=== PATIENT | female | born 1955 | race Hispanic/Latino ===

== ENCOUNTER 2023-12-28 17:47 | Inpatient (IN) | payer SELFPAY ==
[~2023-12-28] VITALS: Ht 152.4 cm; Wt 63.5 kg
[2023-12-28 18:41] LABS: APPEARANCE,URINE CLOUDY (CLEAR); BILIRUBIN,URINE NEGATIVE (NEGATIVE); COLOR,URINE YELLOW (YELLOW); GLUCOSE, URINE (UA) NEGATIVE (NEGATIVE); KETONES,URINE NEGATIVE (NEGATIVE); LEUKOCYTE ESTERASE ,URINE 500 Leu/uL (NEGATIVE); NITRATE,URINE 2+ (NEGATIVE); OCCULT BLOOD,URINE NEGATIVE (NEGATIVE); PROTEIN,URINE 30 mg/dL (NEGATIVE); UROBILINOGEN,URINE 0.2 mg/dL (0.2-1.0)
[2023-12-28] MEDS: Solu-medROL 125MG VIAL IVP ONE (18:42)
[2023-12-28] MEDS: CYCLOBENZAPRINE HCL 10 MG TABLET PO ONE (18:42)
[2023-12-28] MEDS: ketOROlac 15MG/ML VIAL (15MG/ML) IV ONE (18:42)
[2023-12-28 18:43] LABS: ADD UA MICROSCOPIC YES
[2023-12-28 18:47] LABS: BACTERIA,URINE FEW /HPF (None Seen); MUCUS,URINE RARE LPF (None Seen); SQUAMOUS EPITHELIAL CELL,UR FEW /HPF (0-2); WBC CLUMP FEW /HPF (0-1); WBC,URINE 26-50 /HPF (0-1)
[2023-12-28 19:29] LABS: BASOPHILS # (AUTO) 0.02 K/uL (0.00-0.20); BASOPHILS % (AUTO) 0.2 % (0.0-5.0); EOSINOPHILS # (AUTO) 0.19 K/uL (0.00-0.70); EOSINOPHILS % (AUTO) 2.1 % (0.0-8.0); HEMATOCRIT 31.3 % (36-48); IMMATURE GRANULOCYTE ABSOLUTE 0.04 K/uL (0-1); LYMPHOCYTES % (AUTO) 33.5 % (21.0-51.0); MEAN CORPUSCULAR HEMOGLOBIN 30.2 pg (27.0-33.0); MEAN CORPUSCULAR HGB CONC 33.2 g/dL (32.0-36.0); MONOCYTES # (AUTO) 0.4 K/uL (0.1-1.0); MONOCYTES % (AUTO) 4.4 % (3.0-13.0); NEUTROPHILS # (AUTO) 5.3 K/uL (1.8-7.7); NEUTROPHILS % (AUTO) 59.4 % (40.0-77.0); PLATELET COUNT (AUTO) 456 K/uL (130-400); RED BLOOD CELL COUNT(AUTO) 3.44 MIL/uL (4.00-5.50); RED CELL DISTRIBUTION WIDTH 12.9 % (11.0-15.5)
[2023-12-28 19:35] LABS: POTASSIUM 4.3 mmol/L (3.5-5.1)
[2023-12-28] MEDS: 0.9%NACL 1000ML 1,000 ML IV ONE (20:13)
[2023-12-28] MEDS: cefTRIAXone 1G VIAL IVPB ONE (20:13)
[2023-12-28] MEDS: 0.9%NACL 1000ML 1,000 ML IV SCH (23:30)
[2023-12-28] MEDS: HEParin 5,000 UNIT VIAL SQ SCH (23:39)
[2023-12-28] MEDS: morPHINE 2 MG SYG IVP ONE (23:40)
[2023-12-29] VITALS (9 sets, daily range): BP systolic 115–153; BP diastolic 43–88; PULSE 67–78; RESP 18–19; TEMP 98.2–98.9; O2SAT 97–98
[2023-12-29] MEDS ORDERED: OLME40TA18 PO (01:56)
[2023-12-29] MEDS ORDERED: GABA-529 PO (01:58)
[2023-12-29 05:16] LABS: BASOPHILS # (AUTO) 0.02 K/uL (0.00-0.20); BASOPHILS % (AUTO) 0.2 % (0.0-5.0); EOSINOPHILS # (AUTO) 0.01 K/uL (0.00-0.70); EOSINOPHILS % (AUTO) 0.1 % (0.0-8.0); HEMATOCRIT 34.5 % (36-48); IMMATURE GRANULOCYTE ABSOLUTE 0.09 K/uL (0-1); LYMPHOCYTES # (AUTO) 1.4 K/uL (1.0-4.8); LYMPHOCYTES % (AUTO) 17.9 % (21.0-51.0); MEAN CORPUSCULAR HEMOGLOBIN 30.3 pg (27.0-33.0); MEAN CORPUSCULAR HGB CONC 31.3 g/dL (32.0-36.0); MEAN CORPUSCULAR VOLUME 96.6 fL (79-99); MONOCYTES # (AUTO) 0.1 K/uL (0.1-1.0); MONOCYTES % (AUTO) 1.6 % (3.0-13.0); NEUTROPHILS # (AUTO) 6.4 K/uL (1.8-7.7); NEUTROPHILS % (AUTO) 79.1 % (40.0-77.0); PLATELET COUNT (AUTO) 290 K/uL (130-400); RED BLOOD CELL COUNT(AUTO) 3.57 MIL/uL (4.00-5.50); RED CELL DISTRIBUTION WIDTH 12.8 % (11.0-15.5); WHITE BLOOD COUNT (AUTO) 8.1 K/uL (4.8-10.8)
[2023-12-29 05:44] LABS: CREATININE 0.9 mg/dL (0.5-1.0); MAGNESIUM 1.7 mg/dL (1.80-2.40); POTASSIUM 4.4 mmol/L (3.5-5.1)
[2023-12-29 06:33] LABS: HEMOGLOBIN A1C 8.1 % (4.0-6.0)
[2023-12-29] MEDS: INSULIN LISpro 100 UNIT/ML 3ML SQ SCH (06:36)
[2023-12-29] MEDS: ondanSETRON 4MG TABLET PO PRN (12:00)
[2023-12-29] MEDS: acetaMINOPHEN 325 MG TAB PO PRN (20:19)
[2023-12-29] MEDS: cefTRIAXone 1G VIAL IVPB SCH (20:20)
[2023-12-29] MEDS: BALSAM PERU/CASTOR OIL 60 GM TUBE TP SCH (20:20)
[2023-12-29] MEDS: morPHINE 2 MG SYG IVP PRN (23:48)
[2023-12-30] VITALS (7 sets, daily range): BP systolic 136–149; BP diastolic 54–77; PULSE 62–69; RESP 17–20; TEMP 98.1–98.7; O2SAT 95
[2023-12-30 06:07] LABS: HEMATOCRIT 32.3 % (36-48); MEAN CORPUSCULAR HEMOGLOBIN 29.7 pg (27.0-33.0); MEAN CORPUSCULAR HGB CONC 32.2 g/dL (32.0-36.0); MEAN CORPUSCULAR VOLUME 92.3 fL (79-99); RED BLOOD CELL COUNT(AUTO) 3.5 MIL/uL (4.00-5.50); RED CELL DISTRIBUTION WIDTH 12.9 % (11.0-15.5); WHITE BLOOD COUNT (AUTO) 8.7 K/uL (4.8-10.8)
[2023-12-30 06:26] LABS: CREATININE 0.8 mg/dL (0.5-1.0); MAGNESIUM 1.7 mg/dL (1.80-2.40); POTASSIUM 3.7 mmol/L (3.5-5.1)
[2023-12-30] MEDS: BALSAM PERU/CASTOR OIL 60 GM TUBE TP SCH (08:02)
[2023-12-30] MEDS: MAGNESIUM 2GM PREMIX 50ML 50 ML IV PRN (08:15)
[2023-12-30] MEDS ORDERED: PoTASSium chl 10% ELIXIR 20MEQ 20 MEQ/15 ML UDCUP PO PRN (15:00)
[2023-12-30] MEDS ORDERED: PoTASSium chloRIDE 20MEQ/100ML 100 ML IV PRN (15:00)
[2023-12-30] MEDS: PoTASSium chloRIDE 20MEQ ER 20 MEQ ERTAB PO PRN (16:38)
[2023-12-30] MEDS: pregABALin 75 MG CAPSULE PO SCH (20:43)
[2023-12-31] VITALS: BP 138/60; PULSE 60; RESP 17; TEMP 98.3
[2023-12-31 01:02] VITALS: O2SAT 94
[2023-12-31 04:00] VITALS: BP 140/63; PULSE 68; RESP 18; TEMP 98.9
[2023-12-31 05:17] LABS: HEMATOCRIT 33.5 % (36-48); MEAN CORPUSCULAR HEMOGLOBIN 30.2 pg (27.0-33.0); MEAN CORPUSCULAR HGB CONC 32.5 g/dL (32.0-36.0); MEAN CORPUSCULAR VOLUME 92.8 fL (79-99); RED BLOOD CELL COUNT(AUTO) 3.61 MIL/uL (4.00-5.50); RED CELL DISTRIBUTION WIDTH 12.7 % (11.0-15.5); WHITE BLOOD COUNT (AUTO) 7.8 K/uL (4.8-10.8)
[2023-12-31 05:31] LABS: ALBUMIN 2.7 g/dL (3.5-5.0); BILIRUBIN,TOTAL 0.1 mg/dL (0.2-1.0); CREATININE 0.8 mg/dL (0.5-1.0); POTASSIUM 4.3 mmol/L (3.5-5.1); TOTAL PROTEIN, SERUM 6.8 g/dL (6.0-8.3)
[2023-12-31 07:14] VITALS: BP 128/57; PULSE 67; RESP 17; TEMP 99.1
[2023-12-31 08:34] VITALS: O2SAT 95
[2023-12-31 10:30] VITALS: TEMP 98.1
== END 2023-12-31 13:00 | disposition home or self-care (01) | DRG 690 ==
LOC: EDH 17:47 → EDHIP 17:48 → UNDOADMIN 22:27 → EDHIP 12-29 01:40 → 3BH 12-29 01:40
PROVIDERS: ADMIT Internal Medicine Infectious Disease; ATTEND Internal Medicine Infectious Disease
DX: N12 Tubulo-interstitial nephritis, not specified as acute or chronic (principal); E66.9 Obesity, unspecified; M25.552 Pain in left hip; D64.9 Anemia, unspecified; E11.9 Type 2 diabetes mellitus without complications; I10 Essential (primary) hypertension; Z87.442 Personal history of urinary calculi; Z68.27 Body mass index [BMI] 27.0-27.9, adult
CPT/HCPCS: 36415; 73521; 74176; 80048; 80053; 81001; 82948; 83036; 83735; 84145; 85025; 85027; 87086; 87186; G0378; J0696; J1644; J1885; J2270; J2919; J3475; J7030; Q0162